=== PATIENT | male | born 1955 | race African-American/Black ===

== ENCOUNTER → 2019-10-03 16:03 | Outpatient (CLI) | payer OTHER, SELFPAY ==
[2019-10-05 08:21] LABS: COVID19 Sendout Not Detected (Not Detected)
== END ==
PROVIDERS: Family Provider Physician Assistant; PCP Physician Assistant; Visit Provider Physician Assistant
DX: Z11.59 Encounter for screening for other viral diseases (principal)
CPT/HCPCS: 87635